=== PATIENT | male | born 1980 | race Caucasian/White ===

== ENCOUNTER → 2017-12-18 | Outpatient (CLI) | payer OTHER ==
--- NOTE | 2017-12-18 11:00 | RAD ---
Lumbar spine, 5 views, 12/18/2017: History: Back pain, no injury The lumbar vertebral heights are well-maintained. No fracture or dislocation is identified. There are mild scattered marginal spurs. There is no evidence of spondylolysis. There are minimal sclerotic changes involving scattered facet joints. Aortic calcific plaquing is present. IMPRESSION: 1. Mild scattered degenerative changes. 2. No acute bony abnormality is detected.
== END | disposition home or self-care (01) ==
LOC: PMG 09:03
PROVIDERS: ATTEND Physician Assistant Medical
DX: I70.0 Atherosclerosis of aorta (principal); M54.5 Low back pain
CPT/HCPCS: 72110

== ENCOUNTER 2021-04-03 19:20 | Emergency (ER) | payer OTHER ==
[~2021-04-03] VITALS: Ht 165.1 cm; Wt 62.8 kg
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
[2021-04-03] MEDS ORDERED: KETOROLAC 60 MG/2 ML VIAL. IM ONE (21:00)
[2021-04-03] MEDS ORDERED: MORPHINE SULFATE 10 MG/ML SYRINGE. SQ ONE (21:00)
--- NOTE | 2021-04-03 21:22 | RAD ---
Exam: Chest 2 views INDICATION: Mid right rib pain TECHNIQUE: Frontal and lateral views of the chest Comparisons: None FINDINGS: Bone mineralization is normal. No acute or healed fractures. Soft tissues are unremarkable. Joint spa fernanda are well-maintained. IMPRESSION: No acute osseous abnormality Electronically signed by: Mack Marquez MD (04/03/2021 9:20 PM) [facility]
--- NOTE | 2021-04-03 21:24 | RAD ---
Exam: Right elbow 3 views INDICATION: Flipped razor TECHNIQUE: Frontal, lateral oblique views of the right elbow Comparisons: None FINDINGS: Soft tissue swelling overlying the olecranon. Bone mineralization is normal. Joint spaces are well-ma intained. No acute or healed fractures. IMPRESSION: Soft tissue swelling overlying the olecranon without underlying osseous abnormality identified. Electronically signed by: Mack Marquez MD (04/03/2021 9:22 PM) [facility]
[2021-04-03 21:31] VITALS: BP 130/80
== END 2021-04-03 22:28 | disposition home or self-care (01) ==
LOC: ER 19:20
DX: S20.211A Contusion of right front wall of thorax, initial encounter (principal); S50.01XA Contusion of right elbow, initial encounter; X58.XXXA Exposure to other specified factors, initial encounter; Y93.89 Activity, other specified; Y92.89 Other specified places as the place of occurrence of the external cause; Y99.8 Other external cause status
CPT/HCPCS: 71046; 73080; 96372; 99284; J1885; J2270

== ENCOUNTER 2021-12-06 00:09 | Emergency (ER) | payer OTHER ==
[~2021-12-06] VITALS: Ht 170.2 cm; Wt 63.5 kg
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
[2021-12-06] MEDS ORDERED: IV RINGERS SOLUTION,LACTATED 1,000 ML IV SCH (01:00)
[2021-12-06] MEDS ORDERED: ACETAMINOPHEN 500 MG TABLET PO ONE (01:00)
[2021-12-06] MEDS ORDERED: DIPHTH,PERTUSS(ACELL),TET TOX 0.5 ML DISP.SYRIN. VAX IM ONE (01:00)
[2021-12-06] MEDS ORDERED: ONDANSETRON PF 4 MG/2 ML VIAL. IVP ONE (01:00)
[2021-12-06] MEDS ORDERED: MUPIROCIN 2% TOPICAL OINTMENT 22GM TUBE. TP SCH (01:03)
[2021-12-06 01:10] LABS: BASO % 0 % (0-3); EOS % 0 % (0-3); HEMOGLOBIN 15.4 g/dL (13.0-17.5); LYMPH # 1.5 x10^3/uL (1.0-4.8); LYMPH % 10 % (24-48); MEAN CORPUSCULAR HEMOGLOBIN 32 pg (25-35); MEAN CORPUSCULAR HGB CONC 34 g/dL (31-37); MEAN CORPUSCULAR VOLUME 94 fL (79-100); MONO # 0.6 x10^3/uL (0.0-1.1); MONO % 4 % (0-9); NEUT # 12.6 x10^3uL (1.8-7.7); NEUT % 86 % (31-73); PLATELET COUNT 280 x10^3/uL (140-400); RED BLOOD COUNT 4.82 x10^6/uL (4.30-5.70); RED CELL DISTRIBUTION WIDTH 13.5 % (11.5-14.5); WHITE BLOOD COUNT 14.7 x10^3/uL (4.0-11.0)
[2021-12-06 01:13] LABS: CALCIUM 8.8 mg/dL (8.5-10.1); CREATININE 0.8 mg/dL (0.7-1.3); GFR 105.5; POTASSIUM 3.6 mmol/L (3.5-5.1)
[2021-12-06 01:19] LABS: ALBUMIN 3.7 g/dL (3.4-5.0); DIRECT BILIRUBIN 0.1 mg/dL (0.0-0.2); TOTAL BILIRUBIN 0.2 mg/dL (0.2-1.0); TOTAL PROTEIN 6.9 g/dL (6.4-8.2)
[2021-12-06 01:47] LABS: BARBITURATES NEG (NEG); BENZODIAZEPINES POS (NEG); CANNABINOIDS NEG (NEG); COCAINE NEG (NEG); METHADONE NEG (NEG); OPIATES POS (NEG); PHENCYCLIDINE NEG (NEG)
[2021-12-06 01:49] LABS: AMPHETAMINE/METHAMPHETAMINE POS (NEG)
[2021-12-06 01:52] LABS: CLARITY,URINE CLEAR; COLOR,URINE YELLOW; GLUCOSE,URINE NEG (NEG); NITRITE,URINE NEG (NEG); UROBILINOGEN,URINE 0.2 mg/dL (0.2 mg/dL)
[2021-12-06 01:53] LABS: BACTERIA,URINE 0 /HPF (0-FEW); RBC,URINE RARE /HPF (0-2); WBC,URINE OCC /HPF (0-4)
--- NOTE | 2021-12-06 01:59 | RAD ---
CT head without contrast. CT cervical spine without contrast PQRS statement: CT scans at this facility use dose reduction including either automated exposure cont rol, iterative reconstructions, and /or weight based radiation dosing via mA and kV modification when appropriate to reduce radiation dose to as low as reasonably achievable. HISTORY: Fall downstairs, syncope. CT head findings: No intracranial hemorrhage, mass, hydrocephalus, extra-axial fluid collections or i nfarction. 1 cm in thickness left occipital scalp hematoma. There is fracturing of the right maxillar y sinus along the floor of the sinus and posteriorly with an air-fluid level in the sinus. Mastoids i ntact. Skull base and calvarium are intact. IMPRESSION: 1. No acute intracranial CT abnormality. 2. Occipital scalp hematoma. No fracture of the skull base or calvarium visualized. 3. Acute appearing traumatic fractures of the floor and posterior wall of the right maxillary sinus w ith fluid within the sinus. See above. CT cervical spine findings: Craniocervical junction intact. Cervical vertebral body height and alignm ent intact. No fracture of the cervical spine. Cervical disc height loss, disc bulges and disc osteop hytes at several levels with spinal canal and neural foraminal stenoses. Lung apices paraspinal tissu es are unremarkable. IMPRESSION: No acute osseous injury of the cervical spine. Cervical disc disease as described above. Electronically signed by: Rafael Elliott MD (12/06/2021 1:57 AM) [facility]
--- NOTE | 2021-12-06 02:16 | RAD ---
AP chest x-ray HISTORY: Fall down stairs. COMPARISON: Chest x-ray April 03, 2021 FINDINGS: Heart size is normal. The mediastinal silhouette is normal. No pneumothorax, pulmonary opac ities or pleural effusions. Bones are unremarkable. IMPRESSION: No acute process. Electronically signed by: Rafael Elliott MD (12/06/2021 2:14 AM) [facility]
[2021-12-06] MEDS ORDERED: IV NORMAL SALINE 50ML 50 ML ONE (02:44)
[2021-12-06] MEDS ORDERED: cefTRIAXone SODIUM 1 GM VIAL ONE (02:44)
[2021-12-06] MEDS ORDERED: MORPHINE SULFATE 10 MG/ML SYRINGE. SQ ONE (03:00)
[2021-12-06] MEDS ORDERED: CEPH500C PO (03:00)
[2021-12-06 03:24] VITALS: BP 142/82
--- NOTE | 2021-12-06 05:59 | EKG ---
[address] [address] Test Date: 2021-12-06 Test Time: 01:11:35 Pat Name: AMANDA VANCE Department: Room: Gender: M Facilities Director: : 1980 Requested By: MALA AMOR Order Number: [id number] Reading MD: Vasiliy Crawford Measurements Intervals [place] Rate: 81 P: 73 UT: 164 QRS: 65 QRSD: 82 T: 44 QT: 344 QTc: 405 Interpretive Statements SINUS RHYTHM Electronically Signed On 12-07-2021 18:14:04 CDT by Vasiliy Crawford
== END 2021-12-06 03:26 | disposition home or self-care (01) ==
LOC: ER 00:09
DX: S02.40CA Maxillary fracture, right side, initial encounter for closed fracture (principal); S06.0X9A Concussion with loss of consciousness of unspecified duration, initial encounter; S01.81XA Laceration without foreign body of other part of head, initial encounter; S01.01XA Laceration without foreign body of scalp, initial encounter; F17.210 Nicotine dependence, cigarettes, uncomplicated; W01.198A Fall on same level from slipping, tripping and stumbling with subsequent striking against other object, initial encounter; Y93.89 Activity, other specified; Y92.89 Other specified places as the place of occurrence of the external cause; Y99.8 Other external cause status
CPT/HCPCS: 36415; 70450; 71045; 72125; 80048; 80076; 80307; 81001; 85025; 85610; 90471; 90715; 93005; 96361; 96365; 96372; 96375; 99285; J0696; J2270; J2405; J7120

== ENCOUNTER 2022-01-01 19:49 | Emergency (ER) | payer OTHER ==
[~2022-01-01] VITALS: Ht 170.2 cm; Wt 63.5 kg
[~2022-01-01 19:49] MED LIST: CEPH500C PO
--- NOTE | 2022-01-01 19:59 | PHYS DOC ---
Past History Past Medical History: No Pertinent History Additional Past Medical Histor: chronic lower back pain, ADHD Past Surgical History: No Surgical History Smoking: Cigarettes Alcohol Use: Occasionally Drug Use: Other General Adult EDM: Chief Complaint: LACERATION/AVULSION HPI: HPI: ".. I got this cut....cut it working on my son stock car..the sheet metal..." Patient is a 41 year old male who presents with above hx and complaints of laceration index and middle finger right hand.. Third finger had only superficial cut. Index finger had 5 cm laceration. Hand skin was deeply impregnated with oil grease and dirt. Distal neurovascular appear to be intact. Range motion appeared to be intact. Patient is right-hand dominant for writing, but also uses his left hand equally. Cap refill is equal to the other fingers. Patient up-to-date with tetanus as of 2 months ago. No recent travel. No specific ill contacts. Normally follows with . [facility] care. Review of Systems: Review of Systems: Constitutional: Denies fever or chills Eyes: Denies change in visual acuity HENT: Denies nasal congestion or sore throat Respiratory: Denies cough or shortness of breath Cardiovascular: Denies chest pain or edema GI: Denies abdominal pain, nausea, vomiting, bloody stools or diarrhea : Denies dysuria Musculoskeletal: Denies back pain or joint pain Integument: Denies rash. Complains of laceration Neurologic: Denies headache, focal weakness or sensory changes Endocrine: Denies polyuria or polydipsia Lymphatic: Denies swollen glands Psychiatric: Denies depression or anxiety Family History: Family History: Noncontributory to presentation Current Medications: Current Meds: See nursing for home meds Allergies: Allergies: Allergies Coded Allergies Type Severity Reaction Last Updated Verified No Known Drug Allergies 04/08/14 No Physical Exam: PE: Constitutional: Well developed, well nourished, moderate acute distress, non- toxic appearance. [] HENT: Normocephalic, atraumatic, bilateral external ears normal, oropharynx moist, no oral exudates, nose normal. [] Eyes: PERRLA, EOMI, conjunctiva normal, no discharge. [] Neck: Normal range of motion, no tenderness, supple, no stridor. [] Cardiovascular:Heart rate regular rhythm, no murmur [] Lungs & Thorax: Bilateral breath sounds equal apex with scattered wheezes auscultation. Abdomen: Bowel sounds normal, soft, no tenderness, no masses, no pulsatile masses. [] Skin: Warm, dry, no erythema, no rash. [] Laceration right index finger and third finger as per HPI Back: No tenderness, no CVA tenderness. [] Extremities: No tenderness, no cyanosis, no clubbing, ROM intact, no edema. [] Neurologic: Alert and oriented X 3, normal motor function, normal sensory function, no focal deficits noted. [] Psychologic: Affect normal, judgement normal, mood normal. [] EKG: EKG: [] Radiology/Procedures: Radiology/Procedures: [] Heart Score: C/O Chest Pain: N/A Risk Factors: Risk Factors: DM, Current or recent (<one month) smoker, HTN, HLP, family history of CAD, obesity. Risk Scores: Score 0 - 3: 2.5% MACE over next 6 weeks - Discharge Home Score 4 - 6: 20.3% MACE over next 6 weeks - Admit for Clinical Observation Score 7 - 10: 72.7% MACE over next 6 weeks - Early Invasive Strategies Course & Med Decision Making: Course & Med Decision Making Pertinent Labs and Imaging studies reviewed. (See chart for details) Laceration repair-prepped for suturing required extensive time and scrubbing to remove as much as possible to ground in dirt and oil.. Patient washed for several minutes with surgical soap and water under continuous tap water.. This is also done with range of motion. Betadine applied and then laceration inject ion site injected with 2% lidocaine. Returned to running tap water and finger was scrubbed with a surgical scrub brush for several minutes. I then cleaned the finger with Betadine and irrigation normal saline and range of motion. There was a slice of avascular skin which was removed since it was only attached by less than 0.1 mL. Then placed 5 x 3-0 Vicryl sutures, then placed 5x3-0 Ethilon sutures-. Polysporin applied and dressing applied. May leave current dressing in place for 3 days if it does not become wet if it becomes wet must be removed immediately. After initial dressing removed apply Polysporin 4 times a day. Patient take Keflex 500 mg 3 times a day for 7 days. At day 10 patient may remove the black sutures but leave the white sutures. Follow-up primary care. Return if any concerns. The small suture to third finger did not require repair just cleaning. Encourage patient not smoke. Impression: 1. Laceration Length 1m 3 rd Rt finger, Index Rt. was 5 cm 2. Tobacco use [] Dragon Disclaimer: Dragon Disclaimer: This electronic medical record was generated, in whole or in part, using a voice recognition dictation system. Departure Departure: Referrals: SANJEEV AGUIRRE (PCP) Scripts Cephalexin (KEFLEX) 500 Mg Capsule 500 MG PO TID for laceration- for 7 Days, #21 CAP Prov: MALA AMOR MD 01/01/22 Ming Disclaimer This chart was dictated in whole or in part using Voice Recognition software in a busy, high-work load, and often noisy Emergency Department environment. It may contain unintended and wholly unrecognized errors or omissions. MALA AMOR MD January 01, 2022 19:59
[2022-01-01 20:01] VITALS: BP 149/88
[2022-01-01] MEDS ORDERED: LIDOCAINE 2% 20 ML VIAL. IJ ONE (20:45)
[2022-01-01] MEDS ORDERED: BACITRACIN ZINC TOPICAL OINT PACKET. TP ONE (20:45)
[2022-01-01] MEDS ORDERED: CEPH500C PO (21:07)
[2022-01-01] MEDS ORDERED: CEPHALEXIN 250 MG CAPSULE PO ONE (21:15)
== END 2022-01-01 21:14 | disposition home or self-care (01) ==
LOC: ER 19:49
DX: S61.210A Laceration without foreign body of right index finger without damage to nail, initial encounter (principal); S61.212A Laceration without foreign body of right middle finger without damage to nail, initial encounter; G89.29 Other chronic pain; F17.210 Nicotine dependence, cigarettes, uncomplicated; W26.8XXA Contact with other sharp object(s), not elsewhere classified, initial encounter; Y93.89 Activity, other specified; Y92.89 Other specified places as the place of occurrence of the external cause; Y99.8 Other external cause status
CPT/HCPCS: 12042; 99284; J2001; 99283